=== PATIENT | female | born 1990 | race Caucasian/White ===

== ENCOUNTER 2024-05-18 14:50 | Emergency (ER) | payer OTHER, SELFPAY ==
[2024-05-18 15:05] VITALS: BP 145/75; PULSE 120; RESP 18; TEMP 37.1; O2SAT 100; BMI 28.2
--- NOTE | 2024-05-18 16:07 | ED_ITS ---
HPI - Animal Bite General Chief Complaint: Animal Bite Stated Complaint: animal bite Time Seen by Provider: 05/18/24 15:34 Source: patient Mode of arrival: Ambulatory History of Present Illness HPI narrative: And will blood bank calendar control clerk is here at bedside. Patient brought in by a friend for dog bite to the left upper arm. Denies any other injuries. However 1 week ago she did dropped something on her right foot that she was not x-ray for her right great toe. Denies does not want a test. Bleeding controlled. Wounds have been washed. Base visualized for all puncture lubin. No numbness tingling or weakness to the hand or arm. Related Data Previous Rx's Medication Instructions Recorded amoxicillin 875 mg-potassium 1 tab PO BID #20 tabs 05/18/24 clavulanate 125 mg tablet hydrocodone 5 mg-acetaminophen 325 1 tab PO Q6H PRN pain #20 tabs 05/18/24 mg tablet ondansetron 4 mg disintegrating 4 mg PO Q8H PRN nausea and 05/18/24 tablet vomiting #10 tabs Allergies Allergy/AdvReac Type Severity Reaction Status Date / Time No Known Drug Allergies Allergy Verified 05/18/24 15:04 Review of Systems Review of Systems Narrative: GENERAL: Negative chills, fatigue, malaise, fever, sweats. HEENT: Negative sinus pain, ear pain, sore throat RESPIRATORY: Negative dyspnea, cough CARDIOVASCULAR: Negative chest pain, palpitations GASTROINTESTINAL: Negative nausea, vomiting, abdominal pain : Negative dysuria, frequency, hematuria MUSCULOSKELETAL: Positive muscle or bony pain SKIN: Negative rash, skin lesions, positive skin wound NEUROLOGIC: Negative weakness, numbness ROS Unobtainable: All systems reviewed & are unremarkable except as noted in HPI and below Patient History Social History Smoking Status: Current every day smoker Smoking Status: Current every day smoker Exam Narrative Exam Narrative: GENERAL: in no distress, not toxic not dyspneic HEAD: Normocephalic. EYES: Pupils equal round ENT: Mucous membranes moist. NECK: Trachea midline. CARDIOVASCULAR: Regular rate and rhythm RESPIRATORY: Clear to auscultation. Breath sounds equal bilaterally. No wheezes, rales, or rhonchi. GASTROINTESTINAL: Abdomen soft, non-tender EXTREMITIES: No gross deformities. Examination left upper extremity. On the medial surface of the upper arm there are 3 puncture wound/laceration between 1 cm in he has cm in linear shape. On the lateral aspect there are 3 wound/laceration wounds as well with the same dimensions. These puncture wounds to show some fat exposure but no muscle exposure tendon exposure or bony injury/exposure. Bleeding is controlled with pressure. Patient actively has range of motion with shoulder raising her hand above her head and behind her back and across her chest. Alysa supinate pronate with the, pre fills light t ouch intact to fingers and thumb on the left. Examination of the right foot there is a hematoma/blood blister on the great toe. Toenail has no injury. No palpable foreign body on the great toe or the small toe. BACK: No flank tenderness. NEURO: AOx4. Clear speech SKIN: Warm and dry PSYCH: Not anxious, is cooperative Initial Vital Signs Initial Vital Signs: Vital Signs Temperature 98.7 F 05/18/24 15:05 Pulse Rate 120 H 05/18/24 15:05 Respiratory Rate 18 05/18/24 15:05 Blood Pressure 145/75 H 05/18/24 15:05 Pulse Oximetry 100 05/18/24 15:05 Oxygen Delivery Method Room Air 05/18/24 15:05 Course Orders Ordered: Discontinued Medications Hydrocodone Bitart/Acetaminophen (Hydrocodone/Acet 5/325 Tablet) 2 tab PO NOW ONE Stop: 05/18/24 16:07 Last Admin: 05/18/24 16:14 Dose: 2 tab Documented By: KIM Amoxicillin/Clavulanate Potassium (Amoxicillin/Clav 875/125 Mg) 1 tab PO NOW ONE Stop: 05/18/24 16:07 Last Admin: 05/18/24 16:15 Dose: 1 tab Documented By: KIM Bacitracin (Bacitracin Oint 0.9 Gm Pckt) 1 applic TOP NOW ONE Stop: 05/18/24 17:18 Last Admin: 05/18/24 17:47 Dose: 1 applic Documented By: KIM Diphtheria/Tetanus/Acell Pertussis (Tet,Diph,Pertuss(Acell),Vac/Pf 0.5 Ml Syringe) 0.5 ml IM .ONCE ONE Stop: 05/18/24 16:07 Last Admin: 05/18/24 16:15 Dose: 0.5 ml Documented By: KIM Ondansetron HCl (Ondansetron 4 Mg Odt) 4 mg SL NOW ONE Stop: 05/18/24 16:07 Last Admin: 05/18/24 16:14 Dose: 4 mg Documented By: KIM Vital Signs Vital signs: Vital Signs - 8 hr 05/18/24 15:05 Temperature 98.7 F Pulse Rate 120 H Respiratory Rate 18 Blood Pressure 145/75 H Pulse Oximetry 100 Oxygen Delivery Method Room Air MDM - Animal Bite Imaging Data Extremity x-ray #1: Radiologist's Impression: [address] [address] XRay Report Signed Patient: Tanna Figueroa MR#: [id number] : 1990 Acct:[id number] Age/Sex: 34 / F Date of Service: 05/18/24 Loc: ED Accession Number: [id number] Procedure: XR humerus LT 2V Ordering Provider: Jose Woodward MD PROCEDURE: XR HUMERUS LT 2V INDICATIONS: Pain/injury TECHNIQUE: 2 views of the humerus were acquired. COMPARISON: None. FINDINGS: Bones: No fractures or dislocations. No suspicious bony lesions. Soft tissues: No suspicious soft tissue calcifications. Small foci of lucency are present overlying the soft tissues. IMPRESSION: No visualized acute fracture or dislocation. However, if clinical concern and/or pain persist, short interval imaging followup in 7-10 days is recommended, as occult injury cannot be definitively excluded. Small soft tissue foci of decreased density. This may represent air. Recommend correlation to infection/trauma. Dictated by: Idalmis Morgan M.D. on 05/18/2024 at 16:45 Approved by: Idalmis Morgan M.D. on 05/18/2024 at 16:46 Extremity x-ray #2: Radiologist's Impression: [address] [address] XRay Report Signed Patient: Tanna Figueroa MR#: [id number] : 1990 Acct:[id number] Age/Sex: 34 / F Date of Service: 05/18/24 Loc: ED Accession Number: [id number] Procedure: XR foot RT min 3V Ordering Provider: Jose Woodward MD PROCEDURE: XR FOOT RT MIN 3V INDICATIONS: Pain/injury TECHNIQUE: 3 views of the foot were acquired. COMPARISON: CR, XR FOOT 3+ VIEWS RIGHT, 12/22/2018, 16:58. FINDINGS: Bones: No fractures or dislocations. No suspicious bony lesions. Soft tissues: No tibiotalar joint effusion. Achilles tendon appears normal. Linear radiodensity is present overlying the soft tissue adjacent to the 5th metatarsal head measuring 7 mm. A similar 2nd focus overlies the distal 1st proximal phalanx measuring approximately 5 mm. IMPRESSION: Radiodensities as above suspicious for foreign body. Dictated by: Idalmis Morgan M.D. on 05/18/2024 at 16:46 Approved by: Idalmis Morgan M.D. on 05/18/2024 at 16:47 [facility] Narrative Medical decision making narrative: And will blood bank calendar control clerk is here at bedside. Patient brought in by a friend for dog bite to the left upper arm. Denies any other injuries. However 1 week ago she did dropped something on her right foot that she was not x-ray for her right great toe. Denies does not want a test. Bleeding controlled. Wounds have been washed. Base visualized for all puncture lubin. No numbness tingling or weakness to the hand or arm. After history and exam, Augmentin Merna Zofran Tdap x-ray left humerus x-ray rig ht foot [facility] Medical records reviewed: Differential considered: Includes but not limited to dog bite humeral fracture foot fracture foot contusion Imaging studies independently reviewed: X-ray left humerus no fracture or foreign body, x-ray right foot foreign body seen on small toe and great toe. No fracture. Consultations: None indicated at this time Treatments: Merna Tdap Zofran Augmentin bacitracin Xeroform Kerlix Jerome wrap Re-evaluations: 6:00 p.m.. Boyfriend at bedside. Xeroform dressing as well as Kerlix as well as Jerome wrap on the left arm for wound dressing placed. I demonstrated this to them. They will leave it on for 24 hours. They both do understand no suturing of the wounds because this is high risk for infection. It will take time for this to heal over. They understand. Referral for Orthopedics as well as General surgery provided. The incidental metallic items in the toes were seen on x-ray. She states she has been doing a lot of stapling and likely this is what it is from. Injury from 1 week ago she dropped something on her toe is unrelated. Not toxic at discharge. No strike through bleeding on dressing. They desire discharge home. Discussion: Appropriate for discharge home. Foreign body in the toes is incidental finding. This can be followed up for removal of with Orthopedics. Wound care follow up with General surgery. Pain is controlled. And will blood bank calendar control clerk was here to take report. They desire discharge home. Diagnosis: Dog bite, toe contusion, foreign body Discharge Plan Departure Patient Disposition: Home Clinical Impression: Foreign body Dog bite Qualifiers: Encounter type: initial encounter Qualified Code(s): W54.0XXA - Bitten by dog, initial encounter Contusion of toe, right Qualifiers: Encounter type: initial encounter Toe: great toe Damage to nail status: without damage Qualified Code(s): S90.111A - Contusion of right great toe without damage to nail, initial encounter Instructions: DI for Removal of Foreign Body From Skin, DI for Contusion, DI for Dog Bite Activity Restrictions/Additional Instructions: No driving operating machinery today or when taking prescribed pain medication as you have been given pain medication today. Change dressing in 24 hours as demonstrated here with provided dressing supplies. Prescription for pain medication and antibiotics have been provided for you. Please call provided general surgery office regarding your dog bite wounds for re-evaluation next week. Change dressing daily. Return immediately if any fever pus or discharge from the wound or any redness from the wound. Please call provided orthopedic office regarding the foreign body metallic items in your toes, this is incidental finding. The x-ray of your toe does not show fracture. Return if worse if any questions or concerns. Prescriptions: New hydrocodone-acetaminophen 5-325 mg tablet 1 tab PO Q6H PRN (Reason: pain) Qty: 20 0RF ondansetron 4 mg tablet,disintegrating 4 mg PO Q8H PRN (Reason: nausea and vomiting) Qty: 10 0RF amoxicillin-pot clavulanate 875-125 mg tablet 1 tab PO BID Qty: 20 0RF Referrals: Miscellaneous,Doctor, [Primary Care Provider] - Ashwin Ramsey MD [Physician] - Latonya Mcnair MD [Physician] - Stand Alone Forms: Patient Portal/API/Survey
[2024-05-18] MEDS: HYDROCODONE/ACET 5/325 TABLET 2 TAB PO (16:14)
[2024-05-18] MEDS: ONDANSETRON 4 MG ODT SL (16:14)
[2024-05-18] MEDS: TET,DIPH,PERTUSS(ACELL),VAC/PF 0.5 ML SYRINGE IM (16:15)
[2024-05-18] MEDS: AMOXICILLIN/CLAV 875/125 MG 1 TAB PO (16:15)
[2024-05-18] MEDS: BACITRACIN OINT 0.9 GM PCKT 1 APPLIC TOP (17:47)
[2024-05-18 18:09] VITALS: BP 126/66; PULSE 75; RESP 18; O2SAT 98
== END 2024-05-18 18:09 | disposition home or self-care (01) ==
PROVIDERS: Emergency Provider Emergency Medicine
DX: S90.111A Contusion of right great toe without damage to nail, initial encounter (principal); M79.5 Residual foreign body in soft tissue; S41.152A Open bite of left upper arm, initial encounter; W54.0XXA Bitten by dog, initial encounter; Z23 Encounter for immunization
CPT/HCPCS: 73060; 73630; 90471; 99283; 90715